=== PATIENT | female | born 1955 | race Caucasian/White ===

== ENCOUNTER 2018-07-11 15:00 | Outpatient (CLI) | payer BC, OTHER ==
--- NOTE | 2018-07-11 16:57 | BD ---
BONE DENSITOMETRY: INDICATION: A 62-year-old female for postmenopausal osteoporosis screening. FINDINGS: Lumbar Spine: BMD (g/cm2) L1 0.724 T-Score: -2.4 L2 0.835 T-Score: -1.8 L3 0.876 T-Score: -1.9 L4 0.850 T-Score: -1.9 L1-L4 0.822 T-Score: -2.0 Femoral Neck: 0.633 T-Score: -1.9 Total Femur: 0.759 T-Score: -1.5 Impression: Bone mineral density of the lumbar spine and femoral neck both indicate osteopenia. TEN-YEAR FRACTURE RISK: Major osteoporotic fracture: 8.2%. HIP FRACTURE: 1.1%. POS: [facility]
== END 2018-07-11 15:01 | disposition home or self-care (01) ==
LOC: BICMAMMO 15:00
PROVIDERS: ATTEND Internal Medicine
DX: Z13.820 Encounter for screening for osteoporosis (principal); M85.89 Other specified disorders of bone density and structure, multiple sites
CPT/HCPCS: 77080